=== PATIENT | female | born 1950 | race Hispanic/Latino ===

== ENCOUNTER → 2020-10-03 | Outpatient (CLI) | payer MEDICARE, OTHER | LOC: RESP 08:02 | PROVIDERS: ATTEND Internal Medicine Critical Care Medicine | DX: J30.9 Allergic rhinitis, unspecified (principal); U07.1 COVID-19; B97.89 Other viral agents as the cause of diseases classified elsewhere; J84.10 Pulmonary fibrosis, unspecified; E66.9 Obesity, unspecified | CPT/HCPCS: 94060; 94640; 94727; 94729 ==